=== PATIENT | male | born 1960 | race Caucasian/White ===

== ENCOUNTER 2017-10-09 12:37 | Emergency (ER) | payer OTHER ==
--- NOTE | 2017-10-09 12:40 | EDPHY ---
HPI/HX/ROS/PE/MDM - Data Points Imaging: I viewed and interpreted images myself Narrative: CHIEF COMPLAINT: Chest pressure, anxiety HPI: The patient is a 57 y/o male with a history of anxiety and recent knee surgery arriving via EMS complaining of chest pressure that began while at work today. He has felt more anxious than normal over the last 4 days and reports the Ativan he normally takes for this wasn't helping his symptoms. He's been sleeping poorly and has a reduced appetite during this time. When these symptoms are present he gets "tight pecs, tingling in my hands and feet," and feels like he will . Today while at work, his symptoms felt the same, but "felt like they weren't going to go away." So he called his psychiatrist to see if there was a different medication he could take and the earliest he could be seen was 17:00 tonight and if he felt like he couldn't cope then he needed to go to the ED. He says he wants to just feel better so he can get some rest. His pressure is mild but diffuse across his chest. It's non-radiating and not associated with diaphoresis, nausea, or other complaints. No calf swelling or pain. EMS notes he was tachycardic en route around 120 and they administered 324mg PO aspirin. He would like to be evaluated for cardiac causes of his symptoms today. He does have a psychiatry appointment scheduled for tomorrow evening. He had a treadmill test 30 years ago and subsequent EKGs since then. He denies any cardiac disease history. REVIEW OF SYSTEMS: Aside from elements discussed in the HPI, a comprehensive 10-point review of systems was reviewed and is negative. PMH: Generalized anxiety disorder - Ativan; inguinal hernia; left knee replacement 7 weeks ago; sleep apnea SOCIAL HISTORY: Daughter at bedside. Employed. PHYSICAL EXAM: General:Patient is alert, in no acute distress. ENT:Eyes are normal to inspection. ENT inspection normal. Neck: Normal inspection. Full range of motion. Respiratory:No respiratory distress. Breath sounds normal bilaterally. Cardiovascular: Regular rate and rhythm. Strong peripheral pulses. Normal cap refill. Abdomen:The abdomen is nontender to palpation. There are no peritoneal signs. Back: Normal to inspection. No tenderness to palpation. Skin: Normal color. No rash. Warm and dry. Extremities: Normal appearance. Full range of motion. Neuro: Oriented x3. Normal motor function. Normal sensory function. (Augustine Alfaro) ED Course: This is a 57 y/o male with a history of anxiety who presents with a 4-day history of anxiety with associated chest pressure. Symptoms did not improve with Ativan and today he was unable to get into his psychiatrist until 17:00 tonight, 4 hours from now, so he came to the ED. He would like to be evaluated for his chest pain in addition to being treated for anxiety. Plan for IV, labs, EKG, chest x-ray. 1mg IV Ativan ordered. The 12 lead EKG was interpreted by myself. Sinus tachycardia rate 115. See hard copy and/or "tracemaster" electronic copy for interpretation. Chest x-ray: negative. D-dimer elevated at 2.40. Chest CTA ordered. (Augustine Alfaro) I took over care of this patient at 3:00 p.m.. This patient is here for chest tightness and anxiety. He has an unremarkable EKG and negative troponin. His D- dimer was elevated. We are waiting the results of a chest CTA. Expected disposition is discharged to home assuming CTA negative. 3:45 p.m., patient re-evaluated. I discussed the results of his CTA of the chest. I reviewed his EKG and blood work as well with him and his . He is asymptomatic at this time. He feels comfortable going home. I feel he is safe for discharge. Dr. Alfaro has prescribed him Xanax for his anxiety. He is to see his primary care physician tomorrow. Return to emergency department precautions were thoroughly reviewed with him. All of his questions were answered. He was discharged in good condition. (Janice Sprague) - Data Points Imaging Results: Imaging Impressions Chest X-Ray 10/09/17 12:40 Impression: Normal. Chest/Thorax CTA 10/09/17 14:15 Impression: No pulmonary embolic disease or source for chest pain identified. Results discussed with Dr. Sprague at 3:28 pm General information for patients regarding this examination can be found at [email or web address]. If you have questions or comments about this report, please contact me at (hospital) or [phone] (cell). CT angiogram of the chest: No pulmonary embolism. Results discussed with staff radiologist Dr. Augustine Mckeon. Please see his report for further details. (Janice Sprague) Laboratory Results: Laboratory Results 10/09/17 12:45 10/09/17 12:45 10/09/1718 10/09/17 12:45 12:45 12:15 WBC 7.52 10^3/uL 10^3/uL (3.80-9.50) RBC 5.27 10^6/uL 10^6/uL (4.40-6.38) Hgb 14.6 g/dL g/dL (13.7-17.5) Hct 43.7 % % (40.0-51.0) MCV 82.9 fL fL (81.5-99.8) MCH 27.7 pg L pg (27.9-34.1) MCHC 33.4 g/dL g/dL (32.4-36.7) RDW 14.5 % % (11.5-15.2) Plt Count 339 10^3/uL 10^3/uL (150-400) MPV 10.2 fL fL (8.7-11.7) Neut % (Auto) 66.3 % % (39.3-74.2) Lymph % (Auto) 23.0 % % (15.0-45.0) [place] % (Auto) 9.2 % % (4.5-13.0) Eos % (Auto) 0.8 % % (0.6-7.6) Baso % (Auto) 0.4 % % (0.3-1.7) Nucleat RBC Rel Count 0.0 % % (0.0-0.2) Absolute Neuts (auto) 4.99 10^3/uL 10^3/uL (1.70-6.50) Absolute Lymphs (auto) 1.73 10^3/uL 10^3/uL (1.00-3.00) Absolute Monos (auto) 0.69 10^3/uL 10^3/uL (0.30-0.80) Absolute Eos (auto) 0.06 10^3/uL 10^3/uL (0.03-0.40) Absolute Basos (auto) 0.03 10^3/uL 10^3/uL (0.02-0.10) Absolute Nucleated RBC 0.00 10^3/uL 10^3/uL (0-0.01) Immature Gran % 0.3 % % (0.0-1.1) Immature Gran # 0.02 10^3/uL 10^3/uL (0.00-0.10) D-Dimer 2.40 ug/mLFEU H ug/mLFEU (0.00-0.50) Sodium 137 mEq/L mEq/L (135-145) Potassium 3.6 mEq/L mEq/L (3.5-5.2) Chloride 98 mEq/L mEq/L (97-110) Carbon Dioxide 23 mEq/l mEq/l (22-31) Anion Gap 16 mEq/L mEq/L (8-16) BUN 10 mg/dL mg/dL (7-23) Creatinine 0.9 mg/dL mg/dL (0.7-1.3) Estimated GFR > 60 Glucose 101 mg/dL H mg/dL (70-100) Calcium 10.1 mg/dL mg/dL (8.5-10.4) Troponin I < 0.012 ng/mL ng/mL (0.000-0.034) Medications Given: Discontinued Medications Sodium Chloride (Ns) 1,000 mls @ 0 mls/hr IV EDNOW ONE; Wide Open PRN Reason: Protocol Stop: 10/09/17 14:21 Last Admin: 10/09/17 14:26 Dose: 1,000 mls Lorazepam (Ativan Injection) 1 mg IVP EDNOW ONE Stop: 10/09/17 13:44 Last Admin: 10/09/17 13:47 Dose: 1 mg General Time Seen by Provider: 10/09/17 12:37 Initial Vital Signs: Initial Vital Signs Temperature (C) 37.0 C 10/09/17 12:41 Heart Rate 115 H 10/09/17 12:41 Respiratory Rate 20 10/09/17 12:41 Blood Pressure 165/93 H 10/09/17 12:41 O2 Sat (%) 98 10/09/17 12:41 O2 Delivery Mode Room Air Allergies/Adverse Reactions: No Known Allergies Allergy (Unverified 10/09/17 12:46) Home Medications: Medication Instructions Recorded ALPRAZolam [Xanax 0.5 MG (*)] 0.5 mg PO TID PRN #10 tab 10/09/17 Atorvastatin Calcium 10/09/17 FENOFIBRATE 10/09/17 Hydrochlorothiazide [HCTZ (*)] 10/09/17 LORazepam [Ativan 2 mg tab] 10/09/17 Venlafaxine HCl [Effexor] 10/09/17 Venlafaxine HCl [Venlafaxine 10/09/17 37.5MG (*)] Departure - Departure Disposition: Home, Routine, Self-Care Clinical Impression: Anxiety Chest pain Qualifiers: Chest pain type: other chest pain Qualified Code(s): R07.89 - Other chest pain Condition: Good Instructions: Chest Pain (ED), Anxiety (ED) Additional Instructions: 1. Keep your appointment with your psychiatrist as scheduled tomorrow. 2. Follow up with your primary care provider for unimproved symptoms. 3. Return to the ED for any worsening of condition. Referrals: [facility],. [Clinic] - As per Instructions Patient,NotPresent [Unknown] - As per Instructions Prescriptions: ALPRAZolam [Xanax 0.5 MG (*)] 0.5 mg PO TID PRN #10 tab PRN Reason: Anxiety Report Scribed for: Augustine Alfaro Report Scribed by: Payton Frederick Date of Report: 10/09/17 Time of Report: 13:45 Physician Review and Approval Statement: Portions of this note were transcribed by an ED scribe. I personally performed the history, physical exam, and medical decision making; and confirm the accuracy of the information in the transcribed note.
[2017-10-09 12:48] LABS: PLATELET COUNT 339 10^3/uL (150-400)
--- NOTE | 2017-10-09 13:06 | CPEKG ---
Heart Rate: 115 RR Interval: 522 P-R Interval: 164 QRSD Interval: 88 QT Interval: 324 QTC Interval: 448 P [place]: 49 QRS [place]: 62 T Wave [place]: -20 EKG Severity - BORDERLINE ECG - EKG Impression: SINUS TACHYCARDIA EKG Impression: BORDERLINE T ABNORMALITIES, INFERIOR LEADS Electronically Signed By: Nic Cuevas 12-Oct-2017 14:38:46
[2017-10-09] MEDS ORDERED: LORazepam 2 MG/ML INJ IVP ONE (13:43)
[2017-10-09] MEDS ORDERED: LORazepam 2 MG/ML INJ ONE (13:45)
[2017-10-09 13:50] VITALS: RESP 18
[2017-10-09] MEDS ORDERED: NS 1,000 ML IV ONE (14:20)
[2017-10-09] MEDS ORDERED: IOPAMIDOL (ISOVUE 370) 100 ML BTL IV ONE (14:27)
[2017-10-09 15:28] VITALS: BP 139/91; PULSE 109; TEMP 98.4; O2SAT 96
== END 2017-10-09 16:12 | disposition home or self-care (01) ==
LOC: EDUNIT#
DX: R07.89 Other chest pain (principal); F41.9 Anxiety disorder, unspecified; E86.9 Volume depletion, unspecified
CPT/HCPCS: 96374; J2060; Q9967